=== PATIENT | female | born 1995 | race Caucasian/White ===

== ENCOUNTER 2017-06-08 08:17 | Emergency (ER) | payer BC ==
[~2017-06-08] VITALS: Ht 160 cm; Wt 99.8 kg
[2017-06-08 08:23] VITALS: BP_SYST 133
[2017-06-08] MEDS ORDERED: IBUPROFEN 800 MG TABLET PO ONE (09:00)
[2017-06-08] MEDS ORDERED: IBUPROFEN 800 MG TABLET ONE (09:07)
[2017-06-08 09:10] VITALS: BP_SYST 136
== END 2017-06-08 09:10 | disposition home or self-care (01) ==
LOC: SED 08:17
DX: S93.402A Sprain of unspecified ligament of left ankle, initial encounter (principal); X58.XXXA Exposure to other specified factors, initial encounter; Y93.39 Activity, other involving climbing, rappelling and jumping off; Y92.89 Other specified places as the place of occurrence of the external cause; Y99.8 Other external cause status
CPT/HCPCS: 99284

== ENCOUNTER 2017-12-09 19:46 | Emergency (ER) | payer BC ==
[~2017-12-09] VITALS: Ht 160 cm; Wt 104.3 kg
[2017-12-09 20:44] VITALS: BP_SYST 117
[2017-12-09] MEDS ORDERED: ACETAMINOPHEN 500 MG TABLET ONE (20:52)
--- NOTE | 2017-12-09 20:52 | NUR ---
MEDICATED WITH TYLENOL ORDERED
[2017-12-09] MEDS ORDERED: ACETAMINOPHEN 500 MG TABLET PO ONE (21:15)
--- NOTE | 2017-12-09 21:49 | NUR ---
PT AMBULATORY TO BED 4 FOR EVALUATION
--- NOTE | 2017-12-09 21:50 | NUR ---
Pt alert and oriented. Pt C/O fever, N/V, chest pain and headache since thursday. Pain stated 06/11. No signs of SOB or acute distress noted. Will continue to monitor.
--- NOTE | 2017-12-09 22:00 | NUR ---
ER MD SUÁREZ at bedside examining patient.
[2017-12-09] MEDS ORDERED: ONDANSETRON HCL 4 MG/2 ML VIAL IVP ONE (22:30)
[2017-12-09] MEDS ORDERED: NACL 0.9% 1,000 ML IV ONE (22:30)
[2017-12-09 22:47] LABS: BILIRUBIN,URINE NEGATIVE (NEGATIVE); BLOOD, URINE NEGATIVE (NEGATIVE); CLARITY/URINE HAZY (CLEAR); COLOR,URINE YELLOW (YELLOW); GLUCOSE,URINE NEGATIVE (NEGATIVE); KETONES,URINE TRACE (NEGATIVE); LEUKOCYTE ESTERASE ,URINE NEGATIVE (NEGATIVE); NITRITE, URINE NEGATIVE (NEGATIVE); PH,URINE 6.5 (5.0-8.0); PROTEIN URINE TRACE (NEGATIVE); UROBILINOGEN,URINE 0.2 (0.2-1.0)
[2017-12-09 22:55] LABS: BASOPHILS % (AUTO) 0.7 % (0.0-2.0); HEMOGLOBIN 12.5 g/dL (12.0-16.0); LYMPHOCYTES # (AUTO) 0.4 K/uL (1.0-5.5); MEAN CORPUSCULAR HEMOGLOBIN 28 pg (27-31); MEAN CORPUSCULAR HGB CONC 34 % (32-36); MEAN CORPUSCULAR VOLUME 83 fL (79.0-98.0); MONOCYTES # (AUTO) 1.2 K/uL (0.0-1.0)
[2017-12-09 22:58] LABS: HEMATOCRIT 36.7 % (36-48); LYMPHOCYTES % (AUTO) 6.5 % (20.5-51.5); NEUTROPHILS # (AUTO) 5.2 K/uL (1.8-7.7); NEUTROPHILS % (AUTO) 75.8 % (40.0-70.0); PLATELET COUNT (AUTO) 208 K/uL (130-430); RED CELL DISTRIBUTION WIDTH 13.1 % (9.0-15.0); WHITE BLOOD COUNT (AUTO) 6.8 K/uL (4.8-10.8)
[2017-12-09 23:05] LABS: CALCIUM 9.2 mg/dL (8.4-11.0); CREATININE 1.05 mg/dL (0.55-1.30); POTASSIUM 3.4 mmol/L (3.5-5.1)
[2017-12-09 23:20] LABS: BACTERIA,URINE FEW /HPF (None Seen); RBC,URINE 0-3 /HPF (0-3)
[2017-12-09 23:21] LABS: FINE GRANULAR CASTS,URINE 0-10 /LPF (None Seen); MUCUS,URINE 3+ /LPF (None Seen)
[2017-12-10 00:20] VITALS: BP_SYST 122
--- NOTE | 2017-12-10 00:20 | NUR ---
Patient given written and verbal discharge instructions and verbalizes understanding. ER MD SUÁREZ discussed with patient the results and treatment provided. Patient in stable condition. ID arm band removed. IV catheter removed intact and dressing applied, no active bleeding. Rx of Tamiflu given. Patient educated on pain management and to follow up with PMD. Pain Scale 0/10. Opportunity for questions provided and answered.
== END 2017-12-10 00:20 | disposition home or self-care (01) ==
LOC: SED 19:46
DX: J09.X2 Influenza due to identified novel influenza A virus with other respiratory manifestations (principal)
CPT/HCPCS: 36415; 80048; 81000; 81025; 85025; 86710; 96361; 96374; 99284; J2405; J7030

== ENCOUNTER 2019-04-11 18:57 | Emergency (ER) | payer SELFPAY ==
[~2019-04-11] VITALS: Ht 160 cm; Wt 108.9 kg
[2019-04-11 19:25] VITALS: BP_SYST 132
[2019-04-11] MEDS ORDERED: NITROFURANTOIN MONOHYD/M-CRYST 100 MG CAPSULE PO ONE (20:15)
[2019-04-11] MEDS ORDERED: PHENAZOPYRIDINE HCL 100 MG TABLET PO ONE (20:15)
[2019-04-11 20:22] VITALS: BP_SYST 132
== END 2019-04-11 20:22 | disposition home or self-care (01) ==
LOC: SED 18:57
DX: N39.0 Urinary tract infection, site not specified (principal); R03.0 Elevated blood-pressure reading, without diagnosis of hypertension
CPT/HCPCS: 99283

== ENCOUNTER 2019-09-30 19:23 | Emergency (ER) | payer SELFPAY ==
[~2019-09-30] VITALS: Ht 160 cm; Wt 104.3 kg
[2019-09-30 19:30] VITALS: BP_SYST 152
--- NOTE | 2019-09-30 19:30 | NUR ---
Patient triaged and placed in waiting room. VSS and patient appears in no acute distress at this time. Accompanied by fam member, awaiting available bed, and MD notified of need for MSE.
--- NOTE | 2019-09-30 22:15 | NUR ---
Patient to ER bed 1 to gown for evaluation. Side rails up. Report given to Miguel LANDIS.
--- NOTE | 2019-09-30 22:15 | NUR ---
Pt c/o sorethroat x 2 weeks with fever and body aches.
--- NOTE | 2019-09-30 22:30 | NUR ---
Dr. May at bedside.
[2019-09-30] MEDS ORDERED: AMOXICILLIN/CLAVULANATE POTASSIUM 875 MG TABLET PO ONE (22:45)
[2019-09-30] MEDS ORDERED: KETOROLAC TROMETHAMINE 15 MG VIAL IM ONE (23:00)
--- NOTE | 2019-09-30 23:00 | NUR ---
Note undone in EDM - 10/01/19 at 0819 by YOKASTA Patient's guardian given written and verbal discharge instructions and verbalizes understanding. ER discussed with patient's guardian the results and treatment provided. Patient in stable condition. ID arm band removed. Rx of Augmentin and Zofran given. Pt refused Rx for [place]. Patient's guardian educated on pain management, fever management, and to follow up with primary physician. Pain Scale/FLACC 2/10. Opportunity for questions provided and answered.Medication side effect fact sheet provided.
--- NOTE | 2019-09-30 23:15 | NUR ---
Pt requests a non-narcotic pain medication. Dr. May notified. Pt to receive Toradol IM.
[2019-09-30 23:45] VITALS: BP_SYST 126
--- NOTE | 2019-09-30 23:45 | NUR ---
Patient's guardian given written and verbal discharge instructions and verbalizes understanding. ER MD discussed with patient's guardian the results and treatment provided. Patient in stable condition. ID arm band removed. Rx of Augmentin and Zofran given. Pt refused Rx for [place]. Patient's guardian educated on pain management, fever management, and to follow up with primary physician. Pain Scale/FLACC 2/10. Opportunity for questions provided and answered.Medication side effect fact sheet provided.
== END 2019-09-30 23:45 | disposition home or self-care (01) ==
LOC: SED 19:23
DX: J39.1 Other abscess of pharynx (principal); F41.9 Anxiety disorder, unspecified
CPT/HCPCS: 96372; 99283; J1885

== ENCOUNTER 2020-03-24 18:57 | Emergency (ER) | payer OTHER ==
[~2020-03-24] VITALS: Ht 160 cm; Wt 104.3 kg
[2020-03-24 19:20] VITALS: BP_SYST 147
--- NOTE | 2020-03-24 19:20 | NUR ---
Pt ambulatory to bed 8 for evaluation
--- NOTE | 2020-03-24 19:53 | NUR ---
ER at bedside examining patient.
[2020-03-24] MEDS ORDERED: IBUPROFEN 800 MG TABLET PO ONE (20:00)
[2020-03-24] MEDS ORDERED: ONDANSETRON 4 MG ODT TAB PO ONE (20:00)
[2020-03-24] MEDS ORDERED: PENICILLIN G BENZATHINE 1.2 MMU/2 ML SYR IM ONE (20:00)
--- NOTE | 2020-03-24 20:15 | NUR ---
Pt BIB family to ED C/O 2-3 day history of persistent sore throat. The patient reports that she tested positive for strep recently and was prescribed Amoxicillin by her PMD. She states that it initially helped but then became worse. She is now complaining of fever, chills, nausea, and diffuse, nonradiating chest pains. She denies any known exposures to COVID individuals. No alleviating factors. Denies SOB, loss of taste or smell, recent travel. Denies urinary symptoms.
--- NOTE | 2020-03-24 21:20 | NUR ---
VSS no s/s of acute distress Resting on gurney rails up
--- NOTE | 2020-03-24 22:30 | NUR ---
Medications well tolerated. Pt verbalize effectiveness of therapies
[2020-03-24 23:09] LABS: INFLUENZA A&B ANTIGEN SCREEN NEGATIVE FOR A & B (NEGATIVE); STREPTOCOCCUS A SCREEN (RAPID) NEGATIVE (NEGATIVE)
--- NOTE | 2020-03-24 23:55 | NUR ---
Patient given written and verbal discharge instructions and verbalizes understanding. ER MD discussed with patient the results and treatment provided. Patient in stable condition. ID arm band removed. Rx of [place], Cepacol, and Penicillin VK given. Patient educated on pain management and to follow up with PMD. Pain Scale 0/10 Opportunity for questions provided and answered. Medication side effect fact sheet provided.
[2020-03-25] VITALS: BP_SYST 131
== END 2020-03-24 23:55 | disposition home or self-care (01) ==
LOC: SED 18:57
DX: J02.9 Acute pharyngitis, unspecified (principal); Z20.828 Contact with and (suspected) exposure to other viral communicable diseases
CPT/HCPCS: 71045; 82962; 86403; 86710; 87081; 93005; 96372; 99285; J0561; Q0162; 36415

== ENCOUNTER 2020-05-03 02:50 | Emergency (ER) | payer OTHER ==
[~2020-05-03] VITALS: Ht 160 cm; Wt 104.3 kg
--- NOTE | 2020-05-03 02:52 | NUR ---
Patient to ER bed 5 to gown for evaluation. Side rails up. Report given to Watson LANDIS.
[2020-05-03 02:53] VITALS: BP_SYST 117
--- NOTE | 2020-05-03 03:00 | NUR ---
ER at bedside examining patient.
[2020-05-03] MEDS ORDERED: ONDANSETRON HCL 4 MG/2 ML VIAL IVP ONE (03:15)
[2020-05-03] MEDS ORDERED: NACL 0.9% 1,000 ML IV ONE (03:15)
[2020-05-03] MEDS ORDERED: KETOROLAC TROMETHAMINE 30 MG VIAL IVP ONE (03:15)
--- NOTE | 2020-05-03 05:05 | NUR ---
Patient given written and verbal discharge instructions and verbalizes understanding. ER MD discussed with patient the results and treatment provided. Patient in stable condition. ID arm band removed. Rx of MOTRIN,ZOFRAN given. Patient educated on pain management and to follow up with PMD. Pain Scale 0/10. Opportunity for questions provided and answered. Medication side effect fact sheet provided.
[2020-05-03 05:07] VITALS: BP_SYST 119
== END 2020-05-03 05:07 | disposition home or self-care (01) ==
LOC: SED 02:50
DX: R10.13 Epigastric pain (principal); R11.2 Nausea with vomiting, unspecified; R42 Dizziness and giddiness; E11.9 Type 2 diabetes mellitus without complications
CPT/HCPCS: 81002; 81025; 96361; 96374; 96375; 99284; J1885; J2405; J7030

== ENCOUNTER 2022-07-13 22:25 | Emergency (ER) | payer SELFPAY ==
[~2022-07-13] VITALS: Ht 167.6 cm; Wt 92.5 kg
[2022-07-13 22:31] VITALS: BP_SYST 106
[2022-07-13] MEDS ORDERED: NACL 0.9% 1,000 ML IV ONE (23:15)
[2022-07-13] MEDS ORDERED: ONDANSETRON HCL 4 MG/2 ML VIAL IVP ONE (23:15)
[2022-07-13] MEDS ORDERED: KETOROLAC TROMETHAMINE 30 MG VIAL IVP ONE (23:15)
[2022-07-14] LABS: BASOPHILS % (AUTO) 0.3 % (0.0-2.0); HEMATOCRIT 40.7 % (36-48); LYMPHOCYTES # (AUTO) 0.3 K/uL (1.0-5.5); LYMPHOCYTES % (AUTO) 5.4 % (20.5-51.5); MEAN CORPUSCULAR VOLUME 83 fL (79.0-98.0); MONOCYTES # (AUTO) 0.5 K/uL (0.0-1.0); MONOCYTES % (AUTO) 8.5 % (1.7-9.3); NEUTROPHILS # (AUTO) 4.7 K/uL (1.8-7.7); NEUTROPHILS % (AUTO) 85.8 % (40.0-70.0); PLATELET COUNT (AUTO) 220 K/uL (130-430); RED BLOOD CELL COUNT(AUTO) 4.89 MIL/uL (4.2-6.2); RED CELL DISTRIBUTION WIDTH 13.7 % (9.0-15.0); WHITE BLOOD COUNT (AUTO) 5.5 K/uL (4.8-10.8)
[2022-07-14 00:23] LABS: BILIRUBIN,URINE 1+ (NEGATIVE); BLOOD, URINE NEGATIVE (NEGATIVE); CLARITY/URINE HAZY (CLEAR); COLOR,URINE YELLOW (YELLOW); GLUCOSE,URINE NEGATIVE (NEGATIVE); KETONES,URINE 3+ (NEGATIVE); LEUKOCYTE ESTERASE ,URINE TRACE (NEGATIVE); NITRITE, URINE NEGATIVE (NEGATIVE); PH,URINE 8.5 (5.0-8.0); PROTEIN URINE 1+ (NEGATIVE)
[2022-07-14 00:25] LABS: CALCIUM 9.3 mg/dL (8.4-11.0); CREATININE 0.98 mg/dL (0.55-1.30); POTASSIUM 3.5 mmol/L (3.5-5.1)
[2022-07-14 00:33] LABS: ALBUMIN 3.9 g/dL (3.4-4.8); TOTAL BILIRUBIN 0.4 mg/dL (0.0-1.0)
[2022-07-14 00:38] LABS: RBC,URINE 0-3 /HPF (0-3)
[2022-07-14 00:39] LABS: BACTERIA,URINE FEW /HPF (None Seen)
[2022-07-14 00:40] LABS: MUCUS,URINE 2+ /LPF (None Seen)
[2022-07-14] MEDS ORDERED: NITROFURANTOIN MONOHYD/M-CRYST 100 MG CAPSULE (MacroBID) PO ONE (04:00)
[2022-07-14 04:03] VITALS: BP_SYST 128
[2022-07-14] MEDS ORDERED: FAMO-132 PO (04:12)
[2022-07-14] MEDS ORDERED: ONDA-8 TL (04:12)
[2022-07-14] MEDS ORDERED: NITR-85 PO (04:12)
== END 2022-07-14 04:12 | disposition home or self-care (01) ==
LOC: SED 22:25
DX: R11.10 Vomiting, unspecified (principal); R10.13 Epigastric pain; R30.0 Dysuria; E11.9 Type 2 diabetes mellitus without complications; Z79.899 Other long term (current) drug therapy
CPT/HCPCS: 99284; 80053; 81000; 84702; 83690; 85025; 36415; 93005; 96374; 96361; 96375; J1885; J2405; J7030

== ENCOUNTER 2022-09-15 16:06 | Emergency (ER) | payer SELFPAY ==
[~2022-09-15] VITALS: Ht 160 cm; Wt 95.3 kg
[~2022-09-15 16:06] MED LIST: FAMO-132 PO; NITR-85 PO; ONDA-8 TL
[2022-09-15 16:24] VITALS: BP_SYST 137
--- NOTE | 2022-09-15 16:29 | NUR ---
Patient triaged and placed in waiting room. VSS and patient appears in no acute distress at this time. Accompanied by SELF, awaiting available bed, and MD notified of need for MSE.
--- NOTE | 2022-09-15 16:34 | NUR ---
PATIENT BROUGHT IN BY SELF COMPLAINING OF 2 DAYS OF DYSURIA, BILATERAL FLANK PAIN AND PELVIC PRESSURE. REPORTS NAUSEA AND VOMITING THIS MORNING. VSS. NO ACUTE DISTRESS.
[2022-09-15] MEDS ORDERED: ONDANSETRON 4 MG ODT TAB PO ONE (16:45)
[2022-09-15 17:18] LABS: BILIRUBIN,URINE 1+ (NEGATIVE); BLOOD, URINE 1+ (NEGATIVE); CLARITY/URINE SL CLOUDY (CLEAR); COLOR,URINE YELLOW (YELLOW); GLUCOSE,URINE NEGATIVE (NEGATIVE); KETONES,URINE 2+ (NEGATIVE); LEUKOCYTE ESTERASE ,URINE NEGATIVE (NEGATIVE); NITRITE, URINE NEGATIVE (NEGATIVE); PH,URINE 5.5 (5.0-8.0); PROTEIN URINE NEGATIVE (NEGATIVE); UROBILINOGEN,URINE 0.2 (0.2-1.0)
[2022-09-15 17:54] LABS: BACTERIA,URINE FEW /HPF (None Seen); MUCUS,URINE 2+ /LPF (None Seen); RBC,URINE 0-3 /HPF (0-3); WBC,URINE 0-3 /HPF (0-3)
[2022-09-15] MEDS ORDERED: KETOROLAC TROMETHAMINE 15 MG VIAL IM ONE (19:30)
[2022-09-15] MEDS ORDERED: ONDA-8 TL (19:45)
[2022-09-15] MEDS ORDERED: IBUP-1969 PO (19:45)
[2022-09-15] MEDS ORDERED: CEPH-548 PO (19:45)
[2022-09-15 20:05] VITALS: BP_SYST 123
--- NOTE | 2022-09-15 20:07 | NUR ---
DC PT HOME AAOX4, NO SOB NOTED AND NAD. DC INSTRUCTION AND PRESCRIPTION WERE GIVEN TO PT. ALSO INSTRUCTED TO F/U WITH HER PCP. SHE VERBALIZED UNDERSTANDING
== END 2022-09-15 20:08 | disposition home or self-care (01) ==
LOC: SED 16:06
DX: N39.0 Urinary tract infection, site not specified (principal); R35.0 Frequency of micturition; E11.9 Type 2 diabetes mellitus without complications; Z79.899 Other long term (current) drug therapy
CPT/HCPCS: 99283; 81000; 81025; 96372; Q0162; J1885

== ENCOUNTER 2022-12-23 21:07 | Emergency (ER) | payer SELFPAY ==
[~2022-12-23] VITALS: Ht 160 cm; Wt 96.2 kg
[~2022-12-23 21:07] MED LIST changes: +CEPH-548 PO; +IBUP-1969 PO
[2022-12-23 21:18] VITALS: BP_SYST 135
--- NOTE | 2022-12-23 21:23 | NUR ---
PT WALKED IN FR HOME C/O UTI S/S SUCH BURNING SENSATION UPON URINATION, HEMATURIA, R FLANK PAIN W/ N/V. PER PT, SHE VOMITED X 5. NKA PMH: DM, RECURRENT UTIS, HX OF KIDNEY STONES.
--- NOTE | 2022-12-23 21:25 | NUR ---
ER at TRIAGE examining patient.
[2022-12-23] MEDS ORDERED: NACL 0.9% 1,000 ML IV ONE (21:45)
[2022-12-23] MEDS ORDERED: MORPHINE 4 MG INJ. 4 MG/ML VIAL IVP ONE (21:45)
[2022-12-23] MEDS ORDERED: KETOROLAC TROMETHAMINE 30 MG VIAL IVP ONE (21:45)
--- NOTE | 2022-12-23 21:45 | NUR ---
Patient to ER bed H1 to gown for evaluation. Side rails up. Report given to SABIHA WATKINS.
[2022-12-23 22:05] LABS: BILIRUBIN,URINE NEGATIVE (NEGATIVE); BLOOD, URINE 3+ (NEGATIVE); COLOR,URINE YELLOW (YELLOW); GLUCOSE,URINE NEGATIVE (NEGATIVE); KETONES,URINE NEGATIVE (NEGATIVE); LEUKOCYTE ESTERASE ,URINE 2+ (NEGATIVE); NITRITE, URINE POSITIVE (NEGATIVE); PH,URINE 6.5 (5.0-8.0); PROTEIN URINE 2+ (NEGATIVE); UROBILINOGEN,URINE 0.2 (0.2-1.0)
[2022-12-23 22:07] LABS: CLARITY/URINE HAZY (CLEAR)
[2022-12-23] MEDS ORDERED: ONDANSETRON HCL 4 MG/2 ML VIAL ONE (22:12)
[2022-12-23] MEDS ORDERED: ONDANSETRON HCL 4 MG/2 ML VIAL IVP ONE (22:15)
[2022-12-23 22:21] LABS: BACTERIA,URINE MODERATE /HPF (None Seen); RBC,URINE 50-80 /HPF (0-3)
--- NOTE | 2022-12-23 22:22 | NUR ---
# 20 gauge angiocath placed to L WRIST. Use of asceptic technique. Opsite placed over site. Blood return noted. Blood for lab drawn from site. Flushed with 10 cc of normal saline. No evidence of infiltration noted. Patient tolerated well.
--- NOTE | 2022-12-23 22:22 | NUR ---
Urine specimen collected and SENT TO LAB.
[2022-12-23 22:24] LABS: CALCIUM 9.2 mg/dL (8.4-11.0); CREATININE 0.81 mg/dL (0.55-1.30)
[2022-12-23 22:26] LABS: BASOPHILS % (AUTO) 0.4 % (0.0-2.0); EOSINOPHILS # (AUTO) 0.1 K/uL (0.0-0.4); HEMATOCRIT 39.4 % (36-48); HEMOGLOBIN 12.9 g/dL (12.0-16.0); LYMPHOCYTES # (AUTO) 2.3 K/uL (1.0-5.5); LYMPHOCYTES % (AUTO) 20.1 % (20.5-51.5); MEAN CORPUSCULAR HEMOGLOBIN 28 pg (27-31); MEAN CORPUSCULAR HGB CONC 33 % (32-36); MEAN CORPUSCULAR VOLUME 85 fL (79.0-98.0); MONOCYTES # (AUTO) 0.9 K/uL (0.0-1.0); MONOCYTES % (AUTO) 7.7 % (1.7-9.3); NEUTROPHILS # (AUTO) 8.2 K/uL (1.8-7.7); NEUTROPHILS % (AUTO) 70.8 % (40.0-70.0); PLATELET COUNT (AUTO) 237 K/uL (130-430); RED BLOOD CELL COUNT(AUTO) 4.62 MIL/uL (4.2-6.2); RED CELL DISTRIBUTION WIDTH 13.9 % (9.0-15.0); WHITE BLOOD COUNT (AUTO) 11.5 K/uL (4.8-10.8)
[2022-12-23 22:29] LABS: ALBUMIN 3.8 g/dL (3.4-4.8); TOTAL BILIRUBIN 0.3 mg/dL (0.0-1.0)
[2022-12-23] MEDS ORDERED: cefTRIAXone 1 GM in D5W 50 ML IV ONE (23:00)
[2022-12-23] MEDS ORDERED: cefTRIAXone 1 GM VIAL ONE (23:05)
[2022-12-23] MEDS ORDERED: IBUP-1969 PO (23:46)
[2022-12-23] MEDS ORDERED: CEPH250C PO (23:46)
[2022-12-23] MEDS ORDERED: ONDA-8 TL (23:46)
[2022-12-23] MEDS ORDERED: HYDR-3921 PO ×2 (23:46)
--- NOTE | 2022-12-24 00:25 | NUR ---
Patient given written and verbal discharge instructions and verbalizes understanding. ER MD discussed with patient the results and treatment provided. Patient in stable condition. ID arm band removed. IV catheter removed intact and dressing applied, no active bleeding. Rx given to be picked up at pt's pharmacy. Patient educated on pain management and to follow up with PMD. Pain Scale 0/10. Opportunity for questions provided and answered. Medication side effect fact sheet provided.
[2022-12-24] MEDS ORDERED: HYDR-3917 PO (12:45)
== END 2022-12-24 00:15 | disposition home or self-care (01) ==
LOC: SED 21:07
DX: N12 Tubulo-interstitial nephritis, not specified as acute or chronic (principal); R30.0 Dysuria; R31.9 Hematuria, unspecified; D72.829 Elevated white blood cell count, unspecified; R10.9 Unspecified abdominal pain; E11.9 Type 2 diabetes mellitus without complications; R11.0 Nausea; Z79.899 Other long term (current) drug therapy
CPT/HCPCS: 99285; 96365; 96375; 76770; 96361; 80053; 81000; 85025; 87086; 36415; J0696; J1885; J2405; J2270; J7030

== ENCOUNTER 2023-02-16 19:39 | Emergency (ER) | payer MEDICAID ==
[~2023-02-16] VITALS: Ht 160 cm; Wt 96.2 kg
[~2023-02-16 19:39] MED LIST changes: +CEPH250C PO; +HYDR-3917 PO
[2023-02-16 19:50] VITALS: BP_SYST 150
[2023-02-16] MEDS ORDERED: AMOX500C2 PO (22:58)
[2023-02-16] MEDS ORDERED: MICO15CR VG (22:58)
[2023-02-16] MEDS ORDERED: HYDR-3917 PO (22:58)
[2023-02-16] MEDS ORDERED: ONDA-8 TL (23:01)
[2023-02-16] MEDS ORDERED: ONDANSETRON 4 MG ODT TAB ONE (23:11)
[2023-02-16] MEDS: KETOROLAC TROMETHAMINE 15 MG VIAL IM ONE (23:16)
[2023-02-16] MEDS: ACETAMINOPHEN 325 MG TABLET PO ONE (23:22)
[2023-02-16] MEDS: ONDANSETRON 4 MG ODT TAB PO ONE (23:26)
== END 2023-02-16 23:27 | disposition home or self-care (01) ==
LOC: SED 19:39
DX: K08.89 Other specified disorders of teeth and supporting structures (principal); E11.9 Type 2 diabetes mellitus without complications; Z79.899 Other long term (current) drug therapy
CPT/HCPCS: 99283; 81025; 96372; Q0162; J1885

== ENCOUNTER 2023-03-10 08:30 | Emergency (ER) | payer MEDICAID ==
[~2023-03-10] VITALS: Ht 160 cm; Wt 96.2 kg
[~2023-03-10 08:30] MED LIST changes: +AMOX500C2 PO; +MICO15CR VG
[2023-03-10 08:44] VITALS: BP_SYST 127
[2023-03-10] MEDS ORDERED: KETOROLAC TROMETHAMINE 60 MG/2 ML VIAL IM ONE (09:00)
[2023-03-10 09:24] LABS: BILIRUBIN,URINE NEGATIVE (NEGATIVE); BLOOD, URINE 1+ (NEGATIVE); COLOR,URINE YELLOW (YELLOW); GLUCOSE,URINE NEGATIVE (NEGATIVE); KETONES,URINE NEGATIVE (NEGATIVE); LEUKOCYTE ESTERASE ,URINE 1+ (NEGATIVE); NITRITE, URINE NEGATIVE (NEGATIVE); PH,URINE 7.5 (5.0-8.0); PROTEIN URINE NEGATIVE (NEGATIVE); UROBILINOGEN,URINE 0.2 (0.2-1.0)
[2023-03-10 09:26] LABS: CLARITY/URINE HAZY (CLEAR)
[2023-03-10 09:33] LABS: BACTERIA,URINE MODERATE /HPF (None Seen)
[2023-03-10] MEDS ORDERED: NITR-85 PO (09:59)
[2023-03-10] MEDS ORDERED: TRAM50TA2 PO (09:59)
[2023-03-10 10:19] VITALS: BP_SYST 126
== END 2023-03-10 10:17 | disposition home or self-care (01) ==
LOC: SED 08:30
DX: N39.0 Urinary tract infection, site not specified (principal); R10.9 Unspecified abdominal pain; E11.9 Type 2 diabetes mellitus without complications
CPT/HCPCS: 81000; 81025; 87086; 99283

== ENCOUNTER 2023-03-23 17:34 | Emergency (ER) | payer MEDICAID ==
[~2023-03-23] VITALS: Ht 160 cm; Wt 92.1 kg
[~2023-03-23 17:34] MED LIST changes: +TRAM50TA2 PO
[2023-03-23 18:23] VITALS: BP_SYST 112
[2023-03-23 19:57] LABS: BASOPHILS % (AUTO) 0.3 % (0.0-2.0); EOSINOPHILS % (AUTO) 0.2 % (0.0-4.0); HEMATOCRIT 38.4 % (36-48); HEMOGLOBIN 12.6 g/dL (12.0-16.0); LYMPHOCYTES # (AUTO) 1.2 K/uL (1.0-5.5); LYMPHOCYTES % (AUTO) 11.3 % (20.5-51.5); MEAN CORPUSCULAR HEMOGLOBIN 28 pg (27-31); MEAN CORPUSCULAR HGB CONC 33 % (32-36); MEAN CORPUSCULAR VOLUME 85 fL (79.0-98.0); MONOCYTES # (AUTO) 0.6 K/uL (0.0-1.0); MONOCYTES % (AUTO) 5.7 % (1.7-9.3); NEUTROPHILS # (AUTO) 9.1 K/uL (1.8-7.7); NEUTROPHILS % (AUTO) 82.5 % (40.0-70.0); PLATELET COUNT (AUTO) 220 K/uL (130-430); RED BLOOD CELL COUNT(AUTO) 4.52 MIL/uL (4.2-6.2)
[2023-03-23 20:03] LABS: ACETONE, SERUM NEGATIVE (NEGATIVE)
[2023-03-23 20:22] LABS: BILIRUBIN,URINE NEGATIVE (NEGATIVE); BLOOD, URINE TRACE (NEGATIVE); COLOR,URINE YELLOW (YELLOW); GLUCOSE,URINE NEGATIVE (NEGATIVE); KETONES,URINE NEGATIVE (NEGATIVE); NITRITE, URINE NEGATIVE (NEGATIVE); PROTEIN URINE NEGATIVE (NEGATIVE); UROBILINOGEN,URINE 0.2 (0.2-1.0)
[2023-03-23 20:25] LABS: ANION GAP 8 (5-15); CALCIUM 8.7 mg/dL (8.4-11.0); CHLORIDE 105 mmol/L (98-107); CREATININE 0.88 mg/dL (0.55-1.30); GFR AFRICAN AMERICAN 100 mL/min (>90); GLUCOSE 96 mg/dL (70-99); UREA NITROGEN, BLOOD 6 mg/dL (8-21)
[2023-03-23 20:29] LABS: ALANINE AMINOTRANSFERASE 15 U/L (12-78); ALBUMIN 3.9 g/dL (3.4-4.8); ASPARTATE AMINOTRANSFERASE 14 U/L (10-37); C-REACTIVE PROTEIN QUANT 0.3 mg/dL (0-0.5); TOTAL BILIRUBIN 0.5 mg/dL (0.0-1.0)
[2023-03-23 20:30] LABS: CLARITY/URINE HAZY (CLEAR); LEUKOCYTE ESTERASE ,URINE TRACE (NEGATIVE)
[2023-03-23 20:32] LABS: BACTERIA,URINE FEW /HPF (None Seen); MUCUS,URINE None Seen /LPF (None Seen); RBC,URINE NONE SEEN /HPF (0-3)
[2023-03-23] MEDS ORDERED: ONDANSETRON 4 MG ODT TAB PO ONE (20:45)
[2023-03-23] MEDS ORDERED: CEPH250C PO (20:52)
[2023-03-23] MEDS ORDERED: cephALEXin 500 MG CAPSULE PO ONE (21:15)
[2023-03-23 21:49] VITALS: BP_SYST 128
== END 2023-03-23 21:49 | disposition home or self-care (01) ==
LOC: SED 17:34
DX: N39.0 Urinary tract infection, site not specified (principal); R30.0 Dysuria; R35.0 Frequency of micturition; E11.9 Type 2 diabetes mellitus without complications; Z79.899 Other long term (current) drug therapy
CPT/HCPCS: 99283; 80053; 81000; 82009; 82962; 84703; 85025; 86140; 87086; 36415; 83605; Q0162